=== PATIENT | female | born 1990 | race Caucasian/White ===

== ENCOUNTER 2017-04-04 14:25 | Emergency (ER) | payer BC, MEDICAID ==
[2017-04-04 14:53] VITALS: BMI 33.6
--- NOTE | 2017-04-04 15:05 | OBHP ---
Datetime: 04/04/2017 14:59 IP Adm Impression: , intrauterine IP Chief Complaint Other: r/o pih IP Admit Plan: Observation/Evaluation Admit Comment, IP Provider: at 36.6weeks semd from pmd for pih evaluation. pt has a h/o pretein uria. no hedache or blurry vision. c/o nausea for few weks,no ctxs,vb, lof,+fm. obhx primi pmh h/o preteinuria. pt seen nephrologusy at age 20. was told to go get g=ct scan med pnv all nkda psh de soch den ve closed a/p at 36.7weeks r/o pih cbc/cmp/ptt/pt/ua bp check cont delroy and efm cont close obser Pelvic Type - PN: Adequate Extremities - PN: Normal Abdomen - PN: Normal Back - PN: Normal Breast - PN: Normal Lungs - PN: Normal Heart - PN: Normal Thyroid - PN: Normal Neurologic - PN: Normal HEENT - PN: Normal General - PN: Normal FHR - Baseline A Provider: 130 Contraction Comments Provider: none Comments, ACOG Physical Exam: gravid,non tender ext no edema,no calf ten Vital Signs Provider: Reviewed; Within Normal Limits NICHD Variability Prov Fetus A: Moderate 6-25bpm NICHD Accel Fetus A IP Provider: 15X15 FHR Category Provider Fetus A: Category I Dilatation, Provider: 0 Effacement, Provider: 0 Station, Provider: -3 Genitourinary Exam: Normal DTRs - PN: Normal
[2017-04-04 16:16] LABS: MEAN CELL VOLUME 87.9 fL (81.0-99.0); MEAN CORPUSCULAR HEMOGLOBIN 29.6 pg (27.0-31.0); MEAN CORPUSCULAR HGB CONC 33.7 g/dL (33.0-37.0); MEAN PLATELET VOLUME 8.2 fL (7.2-11.7); RED CELL DISTRIBUTION WIDTH 13.9 % (11.5-14.5); WHITE BLOOD COUNT 11.3 K/uL (4.8-10.8)
[2017-04-04 16:24] LABS: POTASSIUM 4.2 mmol/L (3.6-5.2)
[2017-04-04 16:26] LABS: ALB/GLOB RATIO 0.8 (1.0-2.1); BILIRUBIN,DIRECT 0.4 mg/dL (0.0-0.4); BILIRUBIN,TOTAL 0.4 mg/dL (0.2-1.3); TOTAL PROTEIN 5.9 g/dL (6.3-8.3)
[2017-04-04 16:27] LABS: CALCIUM 8.4 mg/dl (8.6-10.4); URIC ACID 9.5 mg/dL (2.2-7.5)
[2017-04-04 16:31] LABS: RBC URINE < 1 /hpf (0-3); URINE BACTERIA RARE (<OCC); URINE BILIRUBIN NEGATIVE (NEGATIVE); URINE BLOOD NEGATIVE (NEGATIVE); URINE COLOR Yellow (YELLOW); URINE GLUCOSE (UA) NORMAL (Normal); URINE KETONE NEGATIVE (NEGATIVE); URINE LEUKOCYTE ESTERASE NEG Leu/uL (Negative); URINE PROTEIN 2+ mg/dL (NEGATIVE); URINE UROBILINOGEN NORMAL mg/dL (0.2-1.0); WBC URINE 2 /hpf (0-5)
--- NOTE | 2017-04-04 17:29 | OBHP ---
Datetime: 04/04/2017 17:23 Admit Comment, IP Provider: pt was seen at bed side. feel ok, no ctxs, vb, lof,=fm, no hedache or bl urry vision bp norm blood wok norm except cretinine 1.8 and pr 2+. 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 plan dc home preeclamtic s/s given. po hyration ptl given f/u on sunday in [facility] FHR - Baseline A Provider: 120 Contraction Comments Provider: none Vital Signs Provider: Reviewed; Within Normal Limits NICHD Variability Prov Fetus A: Moderate 6-25bpm NICHD Accel Fetus A IP Provider: 15X15 FHR Category Provider Fetus A: Category I
--- NOTE | 2017-04-04 17:31 | OBDCSUM ---
Datetime: 04/04/2017 17:28 Discharged to, Provider: Home Follow up at, Provider: april 08 at 6 pm Disch Instr Activity: Normal activity Disch Instr Diet: Regular Discharge Time: 04/04/2017 17:29 Follow up in weeks, Provider: [facility], labor and delivery Disch Referrals: None Discharge Comment, Provider: dc home preeclamtic s/s given. po hyration ptl given f/u on sunday in [facility] Discharge Diagnosis Prov Other: 36weeks proteinuria nst
== END 2017-04-04 17:28 | disposition home or self-care (01) ==
LOC: C.EROB 14:25
DX: O12.13 Gestational proteinuria, third trimester (principal); Z3A.36 36 weeks gestation of pregnancy

== ENCOUNTER 2017-04-08 18:58 | Inpatient (IN) | payer BC, OTHER, MEDICAID ==
[2017-04-08 19:47] VITALS: BMI 33.3
--- NOTE | 2017-04-08 19:54 | OBADHP ---
Datetime: 04/08/2017 19:42 IP Adm Impression Other: Gestational HPT Admit Comment, IP Provider: 26yo with IUP at 37+ wkspresents here today for admission and evalu ation for IOL due to elevated BPs and proteinuria as per her Primary OB.( Dr Sampson).She currently denie s any headache or dizziness or epigastric pain. She also denies any VB or LOF. [place]- Irregular, FHR- category 1, Cx- 0/20/-3. Vtx, GBS Negative. Assessment: IUP at 37+wks with elevated BPs and proteinuria. Plan as per Dr Sampson: Admit to LND Cervical ripening with Cytotec 50mcg po q 4 hours.( Orders recieved from Dr Sampson on discussion of P t with her on the telephone.) Pelvic Type - PN: Adequate Extremities - PN: Normal Abdomen - PN: Normal Back - PN: Normal Breast - PN: Normal Lungs - PN: Normal Heart - PN: Normal Thyroid - PN: Normal Neurologic - PN: Normal HEENT - PN: Normal General - PN: Normal Presentation-Admit: Vertex FHR - Baseline A Provider: 130s Membranes, Provider: Intact Contraction Comments Provider: occasional Comments, ACOG Physical Exam: Abd: Soft, NT, BS- present Gestation - Est Wks by US: 37.0 Vital Signs Provider: Reviewed IP Chief Complaint: Maternal discomfort NICHD Variability Prov Fetus A: Moderate 6-25bpm NICHD Accel Fetus A IP Provider: 15X15 FHR Category Provider Fetus A: Category I NICHD Decel Fetus A IP Provider: None Dilatation, Provider: 0 Effacement, Provider: 20 Station, Provider: -3 Genitourinary Exam: Normal DTRs - PN: Normal EGA AdmitDate IP: 37.3 IP Adm Impression: Term, intrauterine ; No Active Labor IP Admit Plan: Admit to unit; Initiate labor protocol Datetime: 04/04/2017 14:59 IP Chief Complaint Other: r/o pih
[2017-04-08] MEDS: Lactated Ringer's 1,000 ML IV SCH (20:14)
[2017-04-08 20:19] LABS: BASO % 0.2 % (0.0-2.0); EOS # 0.1 K/uL (0.0-0.7); EOS % 0.8 % (0.0-4.0); LYMPH # 2.4 K/uL (1.0-4.3); LYMPH % 18.2 % (20.0-40.0); MEAN CELL VOLUME 88.3 fL (81.0-99.0); MEAN CORPUSCULAR HEMOGLOBIN 29.3 pg (27.0-31.0); MEAN CORPUSCULAR HGB CONC 33.3 g/dL (33.0-37.0); MEAN PLATELET VOLUME 8.3 fL (7.2-11.7); MONO # 0.8 K/uL (0.0-0.8); MONO % 5.7 % (0.0-10.0); NEUT % 75.1 % (50.0-75.0); RBC 3.4 Mil/uL (3.80-5.20); RED CELL DISTRIBUTION WIDTH 13.5 % (11.5-14.5); WHITE BLOOD COUNT 13.3 K/uL (4.8-10.8)
[2017-04-08 20:22] LABS: SQUAMOUS EPITHIAL 9 /hpf (0-5); URINE BACTERIA RARE (<OCC); URINE BILIRUBIN NEGATIVE (NEGATIVE); URINE BLOOD NEGATIVE (NEGATIVE); URINE CLARITY Hazy (Clear); URINE COLOR Yellow (YELLOW); URINE GLUCOSE (UA) NORMAL (Normal); URINE LEUKOCYTE ESTERASE NEG Leu/uL (Negative); URINE NITRATE NEGATIVE (NEGATIVE); URINE PROTEIN 3+ mg/dL (NEGATIVE); URINE UROBILINOGEN NORMAL mg/dL (0.2-1.0)
[2017-04-08 20:26] LABS: PROTHROMBIN TIME 10.6 SECONDS (9.7-12.2)
[2017-04-08 20:40] LABS: ALBUMIN 2.7 g/dL (3.5-5.0)
[2017-04-08 20:43] LABS: ALB/GLOB RATIO 0.8 (1.0-2.1); CALCIUM 8.2 mg/dl (8.6-10.4)
[2017-04-08 21:31] LABS: BARBITURATES, UR NEGATIVE (NEGATIVE)
[2017-04-08 21:32] LABS: BENZODIAZEPINES, UR NEGATIVE (NEGATIVE)
[2017-04-08 21:35] LABS: OPIATES, UR NEGATIVE (NEGATIVE)
[2017-04-08 21:36] LABS: PHENCYCLIDINE, UR NEGATIVE (NEGATIVE)
[2017-04-09] MEDS: Lactated Ringer's 1,000 ML IV SCH (04:38)
--- NOTE | 2017-04-09 08:10 | OBPN ---
Datetime: 04/09/2017 08:00 IP Procedures: Sterile Vag Exam IP Progress Plan: Continue present management Contraction Comments Provider: irregular FHR - Baseline A Provider: 125 Gestation - Est Wks by US: 37w 4d IP Progress Note Comment: Asked to evaluate patient for cervical progress. Paatient received in right lateral position, in LDR#4. C/O low back pain, pain scale 6/10 to 7/10. (+) AFM. Denies headaches, blurred vision, spots, epigastric or RUQ pain V.E. as above. Cervix: medium consistency; head well applied. Assessment: 26 yo P0, 37w 3d, IOL for gestational HTN; no stigmata of pre-eclampsia at this time. Category 1 tracing. Clinically stable. Plan: 1) Continue cervical ripening, 2) Anticipate vaginal delivery - as per Dr. Sampson Vital Signs Provider: Reviewed NICHD Accel Fetus A IP Provider: 10X10 FHR Category Provider Fetus A: Category I NICHD Variability Prov Fetus A: Moderate 6-25bpm Dilatation, Provider: 1 Effacement, Provider: 40 Station, Provider: -3 NICHD Decel Fetus A IP Provider: None Datetime: 04/08/2017 19:42 Membranes, Provider: Intact Presentation-Admit: Vertex
[2017-04-09] MEDS ORDERED: Nalbuphine 20 mg/ml Inj (1 ml) ONE (08:38)
[2017-04-09] MEDS ORDERED: Nalbuphine 20 mg/ml Inj (1 ml) IVP PRN (08:45)
[2017-04-09] MEDS ORDERED: Bupivacaine 0.125%/FentaNYL 200 ML EPI ONE ×2 (10:18→22:09)
--- NOTE | 2017-04-09 12:37 | OBPN ---
Datetime: 04/09/2017 11:14 IP Progress Impression: Normal progression of labor IP Progress Plan: Cervical Ripening Contraction Comments Provider: irregular FHR - Baseline A Provider: 120 Gestation - Est Wks by US: 37w 4d Presentation-Admit: Vertex IP Progress Note Comment: S/P epidural - no c/o pain V.E.: as above. Cervix: anterior and soft Assessment: 27 yo, 37w 4, IOL for gest HTN; S/P cytotec p.o. x 1 and now epiduarl; making cervical change. Category 1 tracing. Possible intracervical balloon. Plan: 1) As above. 2) Dr. Sampson en route NICHD Accel Fetus A IP Provider: 15X15 FHR Category Provider Fetus A: Category I NICHD Variability Prov Fetus A: Moderate 6-25bpm Dilatation, Provider: 1-2 Effacement, Provider: 50 Station, Provider: -3 NICHD Decel Fetus A IP Provider: None
[2017-04-09] MEDS ORDERED: Oxytocin 30 UNIT 30 UNITS/500 ML BAG IV ONE (13:16)
[2017-04-09] MEDS: Oxytocin 30 UNIT 30 UNITS/500 ML BAG IV SCH (13:20)
[2017-04-09] MEDS ORDERED: Dextrose 5%/Lactated Ringer's 1,000 ML IV SCH (18:15)
[2017-04-10] MEDS ORDERED: Lidocaine 2% Inj (20ml) ONE (01:06)
[2017-04-10] MEDS ORDERED: Benzocaine/Menthol 20%-0.5% Topical Spray (60 ml) TOP PRN (03:14)
[2017-04-10] MEDS: Oxytocin 30 UNIT 30 UNITS/500 ML BAG IV SCH (04:17)
[2017-04-10] MEDS: Multiple Vitamins Tab PO SCH (10:33)
--- NOTE | 2017-04-10 14:10 | OBDS ---
DELIVERY PERSONNEL Delivery Doctor: Dr Sampson Machined Parts Metal Sprayer: Mary Orr RN Anesthesiologist: Dr Lake MATERNAL INFORMATION Delivery Anesthesia: Epidural Medications in Delivery: Pitocin 20 unit IV Estimated Blood Loss (ml): 200 Placenta Cultured: Yes Maternal Complications: None LABOR SUMMARY EDC: 04/26/2017 00:00 No. Babies in Womb: 1 Attempted: No Labor Anesthesia: Epidural LABOR INFORMATION Reason for Induction: Gest. HTN/PreEclampsia/Eclampsia Onset of Labor: 04/09/2017 12:23 Complete Dilatation: 04/10/2017 01:00 Cervical Ripening Agents: Cytotec @ (Annotations: 50 mcg PO) Oxytocin: Induction Group B Beta Strep: Negative Antibiotics # of Doses: 0 Steroids Given: None Reason Steroids Not Administered: Not Applicable MEMBRANES Membranes Rupture Method: Spontaneous Rupture of Membranes: 04/09/2017 12:23 Length of Rupture (hrs): 14.55 Amniotic Fluid Color: Clear Amniotic Fluid Amount: Small Amniotic Fluid Odor: Normal STAGES OF LABOR Stage 1 hrs: 12 Stage 1 min: 37 Stage 2 hrs: 1 Stage 2 min: 56 Stage 3 hrs: 0 Stage 3 min: 4 Total Time in Labor hrs: 14 Total Time in Labor min: 37 VAGINAL DELIVERY Episiotomy: None Laceration Extension: First Degree Laceration Type: Perineal Other Laceration: labial Laceration Repair: Yes Laceration Repair Note: figure of eight 2-0 chromic, labial laceration internal and hemostatic, no s titch necessary Initial Vag Sponge Count: 10 Final Vag Sponge Count: 10 Initial Vag Sharps Count: 0 Final Vag Sharps Count: 1 Sponge Count Correct: Yes; Vaginal Sweep Performed Sharps Count Correct: Yes BABY A INFORMATION Infant Delivery Date/Time: 04/10/2017 02:56 Method of Delivery: Vaginal Born in Route : No : N/A Forceps: N/A Vacuum Extraction: Successful Shoulder Dystocia : No ASSISTED DELIVERY BABY A Vacuum Number of Pulls: 1 SHOULDER DYSTOCIA BABY A Delivery Date/Time: 04/10/2017 02:56 PRESENTATION/POSITION BABY A Presentation: Cephalic Cephalic Presentation: Vertex Vertex Position: Right Occipital Anterior Breech Presentation: N/A PLACENTA INFORMATION BABY A Placenta Delivery Time : 04/10/2017 03:00 Placenta Method of Delivery: Spontaneous Placenta Status: Delivered SCORES BABY A Heart Rate 1 min: >100 bpm Resp Effort 1 min: Good Cry Reflex Irritability 1 min: Cough or Sneeze or Pulls Away Muscle Tone 1 min: Active Motion Color 1 min: Body [place], Extremities Blue SCORE 1 MIN: 9 Heart Rate 5 min: >100 bpm Resp Effort 5 min: Good Cry Reflex Irritability 5 min: Cough or Sneeze or Pulls Away Muscle Tone 5 min: Active Motion Color 5 min: Body [place], Extremities Blue SCORE 5 MIN: 9 INFANT INFORMATION BABY A Gestational Age at Delivery: 37.6 Gestational Status: Term Infant Outcome : Liveborn Condition : Stable Sex: Male IDENTIFICATION/MEDS BABY A ID Band Number: [id number] ID Band Location: Left Leg; Left Arm Sensor Applied: Yes Sensor Number: [id number] Sensor Location : Cord Clamp Vitamin K Given : Aquamephyton 1 mg IM; Left Thigh Erythromycin Given: Given Both Eyes WEIGHT/LENGTH BABY A Birthweight (gms): 3065 Infant Weight (lb): 6 Infant Weight (oz): 12 Length Inches: 19.00 Length cms: 48.3 CORD INFORMATION BABY A No. Cord Vessels: 3 Nuchal Cord : N/A Cord Blood Taken: Yes Infant Suction: Mouth ASSESSMENT BABY A Infant Complications: None Physical Findings at Delivery: Within Normal Limits; Molding of the Head Respirations: Appears Normal Computer Service Technician/ALS Called : No Care By: Florence Transferred To: Remains with Mother
[2017-04-10] MEDS ORDERED: guaiFENesin 100 mg/5 ml Syrup UD PO PRN ×2 (22:13→22:39)
[2017-04-10] MEDS ORDERED: Benzocaine/Menthol (Cepacol) Lozenge PO PRN (22:25)
[2017-04-10] MEDS: guaiFENesin 100 mg/5 ml Syrup UD PO PRN (23:06)
[2017-04-10] MEDS: Benzocaine/Menthol (Cepacol) Lozenge PO PRN (23:09)
[2017-04-11] MEDS: guaiFENesin 100 mg/5 ml Syrup UD PO PRN ×3 (07:49→23:07)
[2017-04-11] MEDS: Benzocaine/Menthol (Cepacol) Lozenge PO PRN ×3 (07:54→20:57)
[2017-04-11 08:24] LABS: BASO # 0.1 K/uL (0.0-0.2); BASO % 0.3 % (0.0-2.0); EOS # 0.2 K/uL (0.0-0.7); EOS % 1.2 % (0.0-4.0); LYMPH # 2.4 K/uL (1.0-4.3); LYMPH % 13.3 % (20.0-40.0); MEAN CELL VOLUME 88.7 fL (81.0-99.0); MEAN CORPUSCULAR HEMOGLOBIN 30.2 pg (27.0-31.0); MEAN PLATELET VOLUME 8.1 fL (7.2-11.7); MONO # 0.8 K/uL (0.0-0.8); MONO % 4.2 % (0.0-10.0); NEUT # 14.8 K/uL (1.8-7.0); RBC 3.33 Mil/uL (3.80-5.20); RED CELL DISTRIBUTION WIDTH 13.8 % (11.5-14.5); WHITE BLOOD COUNT 18.2 K/uL (4.8-10.8)
[2017-04-11] MEDS: Multiple Vitamins Tab PO SCH (10:14)
--- NOTE | 2017-04-11 19:09 | OBPPN ---
Datetime: 04/11/2017 19:07 PP Pain Prov: Within normal limits PP Nausea Prov: Denies PP Flatus Prov: Yes PP Breasts Prov: Normal PP Heart Prov: Normal PP Lungs Prov: Normal PP Abdomen/Uterus Prov: Normal PP Lochia Prov: Normal PP Vulva/Perineum Prov: Normal PP CVA Tenderness Prov: Normal PP Extremities Prov: Normal PP Impression Prov: Normal progression PP Plan Prov: Continue present management PP Progress Note Prov: ppd#1 VAVD discussed discharge instructions, will be for AM discharge tomorrow
--- NOTE | 2017-04-11 19:15 | OBDCSUM ---
Datetime: 04/11/2017 19:08 Discharged to, Provider: Home Disch Instr Activity: Normal activity Disch Instr Diet: Regular Discharge Instructions, Provider: Routine instructions given Discharge Diagnosis, Provider: Term Delivered Discharge Time: 04/12/2017 10:00 Disch Referrals: None Contraception discussed, Prov: Yes Disch Activity Restrictions: No exercising; No lifting; No driving; No sexual activity; Nothing in v agina - [place], tampons, douche Discharge Diagnosis Prov Other: gestiational hypertension
[2017-04-12 00:08] VITALS: O2SAT 99
[2017-04-12] MEDS: Benzocaine/Menthol (Cepacol) Lozenge PO PRN ×2 (03:16→07:58)
[2017-04-12] MEDS: guaiFENesin 100 mg/5 ml Syrup UD PO PRN (07:57)
[2017-04-12 08:19] VITALS: BP 157/87; PULSE 64; RESP 18; TEMP 97.3
[2017-04-12] MEDS: Multiple Vitamins Tab PO SCH (10:01)
== END 2017-04-12 12:25 | disposition home or self-care (01) | DRG 774 ==
LOC: C.EROB 18:58 → C.4D 19:47 → C.4M 04-10 04:37 → UNDODISIN 04-11 16:00
PROVIDERS: ADMIT Obstetrics & Gynecology; ATTEND Obstetrics & Gynecology
PROC: 3E0P7GC Introduction of Other Therapeutic Substance into Female Reproductive, Via Natural or Artificial Opening (ICD-10-PCS; 2017-04-09)
PROC: 10E0XZZ Delivery of Products of Conception, External Approach (ICD-10-PCS; principal; 2017-04-10)
PROC: 0HQ9XZZ Repair Perineum Skin, External Approach (ICD-10-PCS; 2017-04-10)
DX: O14.93 Unspecified pre-eclampsia, third trimester (principal); O70.0 First degree perineal laceration during delivery; Z37.0 Single live birth; Z3A.37 37 weeks gestation of pregnancy

== ENCOUNTER 2017-08-15 13:08 | Inpatient (IN) | payer MEDICAID, OTHER ==
[2017-08-15 13:23] VITALS: BMI 26.6
[2017-08-15] MEDS ORDERED: Sodium Chloride 0.9% 1,000 ML IV ONE (13:34)
--- NOTE | 2017-08-15 13:46 | C.PDOC ---
History Of Present Illness 26 y/o female c/o abdominal pain associated with vomiting and diarrhea for 3 days. Patient notes eating a sandwich that may have given her food poisoning. Patient denies fever, chills, SOB, or chest pain. Time Seen by Provider: 08/15/17 13:28 Chief Complaint (Nursing): Abdominal Pain History Per: Patient History/Exam Limitations: no limitations Onset/Duration Of Symptoms: Days (3) Current Symptoms Are (Timing): Still Present Severity: Mild Location Of Pain/Discomfort: Diffuse Associated Symptoms: Vomiting, Diarrhea Recent travel outside of the [place]: No Additional History Per: Patient Past Medical History Reviewed: Historical Data, Nursing Documentation, Vital Signs Vital Signs: Last Vital Signs Temp 99.1 F 08/15/17 17:48 Pulse 91 H 08/15/17 17:48 Resp 18 08/15/17 17:48 BP 130/80 08/15/17 17:48 Pulse Ox 98 08/15/17 18:01 - Dine perfect Procedures DELIVERY OF PRODUCTS OF CONCEPTION, EXTERNAL APPROACH (04/08/17) INTRODUCE OF OTH THERAP SUBST INTO FEM REPROD, VIA OPENING (04/08/17) REPAIR PERINEUM SKIN, EXTERNAL APPROACH (04/08/17) Family History: States: Unknown Family Hx - Social History Hx Alcohol Use: No Hx Substance Use: No - Immunization History Hx Tetanus Toxoid Vaccination: No Hx Influenza Vaccination: No Hx Pneumococcal Vaccination: No Review Of Systems Except As Marked, All Systems Reviewed And Found Negative. Constitutional: Negative for: Fever, Chills Cardiovascular: Negative for: Chest Pain, Palpitations Respiratory: Negative for: Shortness of Breath Gastrointestinal: Positive for: Vomiting, Abdominal Pain, Diarrhea Skin: Negative for: Rash Physical Exam - Physical Exam Appears: Non-toxic, No Acute Distress Skin: Warm, Dry Head: Atraumatic, Normacephalic Throat: Normal, No Erythema Chest: Symmetrical Cardiovascular: Rhythm Regular, No Murmur Respiratory: Normal Breath Sounds, No Rales, No Rhonchi, No Wheezing Gastrointestinal/Abdominal: Soft, Tenderness (Mild nonfocal tenderness), No Guarding, No Rebound Back: No CVA Tenderness Neurological/Psych: Oriented x3 ED Course And Treatment - Laboratory Results Result Diagrams: 08/15/17 14:08 08/15/17 14:08 O2 Sat by Pulse Oximetry: 98 (RA) Pulse Ox Interpretation: Normal - CT Scan/US CT Abd/Pel w/o Other Rad Studies (CT/US): Interpreted By Me, Read By Radiologist CT/US Interpretation: PROCEDURE: CT Abdomen and Pelvis without Oral or IV contrast. HISTORY: abd pain, leukocytosis, elevated cr. COMPARISON: None available. TECHNIQUE: Contiguous axial images of the abdomen and pelvis. No oral or IV contrast administered. Coronal and Sagittal reformats generated and reviewed. Radiation dose: Total exam DLP = 476.89 mGy-cm. This CT exam was performed using one or more of the following dose reduction techniques: Automated exposure control, adjustment of the mA and/or kV according to patient size, and/or use of iterative reconstruction technique. FINDINGS: There is limited evaluation of the solid organs without the administration of IV contrast. LOWER THORAX: No visible consolidation, pleural effusion, or pneumothorax. Small hiatal hernia. Bilateral breast prostheses. LIVER: Unremarkable unenhanced appearance. GALLBLADDER AND BILE DUCTS: Unremarkable unenhanced appearance. PANCREAS: Unremarkable unenhanced appearance. SPLEEN: Unremarkable unenhanced appearance. ADRENALS: Unremarkable unenhanced appearance. KIDNEYS AND URETERS: No hydronephrosis or obstructing renal calculus. BLADDER: Distended urinary bladder appears otherwise unremarkable. REPRODUCTIVE: Uterus is present. APPENDIX: The appendix is dilated measuring approximately 13 mm in diameter with intraluminal high-density favored to reflect appendicoliths. Extensive adjacent inflammatory changes are noted. BOWEL: The stomach is nondistended. Lack of oral contrast limits evaluation for bowel pathology. The bowel loops appear within normal limits of caliber without evidence of intestinal obstruction. PERITONEUM: No significant free fluid. No definite free air. LYMPH NODES: No bulky lymphadenopathy identified. VASCULATURE: No aortic aneurysm. BONES: No acute osseous abnormality is detected. OTHER FINDINGS: None. IMPRESSION: The appendix is dilated measuring approximately 13 mm in diameter with intraluminal high- density favored to reflect appendicoliths. Extensive adjacent inflammatory changes are noted. Constellation of findings appear consistent with acute appendicitis. Correlate clinically. Medical Decision Making Medical Decision Making: Plans: * Zofran * Protonix * IV fluids * UA * Blood labs Discussed with Dr. Pandey who is prior authorization technician and advised the patient to be admitted. Disposition - Disposition Disposition: HOSPITALIZED Disposition Time: 18:00 Condition: STABLE - Clinical Impression Clinical Impression: Appendicitis - Scribe Statement The provider has reviewed the documentation as recorded by the Scribe Leslye sparks All medical record entries made by the Scribe were at my direction and personally dictated by me. I have reviewed the chart and agree that the record accurately reflects my personal performance of the history, physical exam, medical decision making, and the department course for this patient. I have also personally directed, reviewed, and agree with the discharge instructions and disposition. Decision To Admit - Pt Status Changed To: Hospital Disposition Of: Inpatient - Admit Certification Admit to Inpatient:: After my assessment, the patient will require hospitalization for at least two midnights. This is because of the severity of symptoms shown, intensity of services needed, and/or the medical risk in this patient being treated as an outpatient. - InPatient: Physician Admission Certification:: pt with appendciitis, needs or - . Bed Request Type: Regular Admitting Physician: Suze Pandey Patient Diagnosis: Appendicitis
[2017-08-15] MEDS ORDERED: Sodium Chloride 0.9% 1,000 ML ONE (13:53)
[2017-08-15 14:11] LABS: BASO % 0.2 % (0.0-2.0); EOS % 0.2 % (0.0-4.0); HEMATOCRIT 39.9 % (34.0-47.0); LYMPH # 0.9 K/uL (1.0-4.3); LYMPH % 3.4 % (20.0-40.0); MEAN CELL VOLUME 87.1 fL (81.0-99.0); MEAN CORPUSCULAR HEMOGLOBIN 29.1 pg (27.0-31.0); MEAN CORPUSCULAR HGB CONC 33.4 g/dL (33.0-37.0); MEAN PLATELET VOLUME 8.8 fL (7.2-11.7); MONO # 0.8 K/uL (0.0-0.8); MONO % 2.9 % (0.0-10.0); PLATELET COUNT 266 K/uL (130-400); RED CELL DISTRIBUTION WIDTH 13.4 % (11.5-14.5)
[2017-08-15 14:20] LABS: POTASSIUM 3.8 mmol/L (3.6-5.2)
[2017-08-15 14:22] LABS: INR 1.2
[2017-08-15 14:23] LABS: ALB/GLOB RATIO 1.2 (1.0-2.1); BILIRUBIN,TOTAL 0.7 mg/dL (0.2-1.3); CALCIUM 8.5 mg/dl (8.6-10.4); TOTAL PROTEIN 7.1 g/dL (6.3-8.3)
[2017-08-15 14:31] LABS: WHITE BLOOD COUNT 27.6 K/uL (4.8-10.8)
[2017-08-15 15:07] LABS: EOSINOPHIL 2 % (0-4); NEUTROPHIL 90 % (50-75); TOTAL CELLS COUNTED 100
[2017-08-15 15:16] LABS: RBC URINE 1 /hpf (0-3); URINE BILIRUBIN NEGATIVE (NEGATIVE); URINE BLOOD NEGATIVE (NEGATIVE); URINE COLOR Straw (YELLOW); URINE GLUCOSE (UA) NORMAL (Normal); URINE KETONE NEGATIVE (NEGATIVE); URINE LEUKOCYTE ESTERASE NEG Leu/uL (Negative); URINE PROTEIN 2+ mg/dL (NEGATIVE); URINE UROBILINOGEN NORMAL mg/dL (0.2-1.0); WBC URINE 8 /hpf (0-5)
--- NOTE | 2017-08-15 16:36 | CT ---
PROCEDURE: CT Abdomen and Pelvis without Oral or IV contrast. HISTORY: abd pain, leukocytosis, elevated cr COMPARISON: None available. TECHNIQUE: Contiguous axial images of the abdomen and pelvis. No oral or IV contrast administered. Coronal and Sagittal reformats generated and reviewed. Radiation dose: Total exam DLP = 476.89 mGy-cm. This CT exam was performed using one or more of the following dose reduction techniques: Automated exposure control, adjustment of the mA and/or kV according to patient size, and/or use of iterative reconstruction technique. FINDINGS: There is limited evaluation of the solid organs without the administration of IV contrast. LOWER THORAX: No visible consolidation, pleural effusion, or pneumothorax. Small hiatal hernia. Bilateral breast prostheses. LIVER: Unremarkable unenhanced appearance. GALLBLADDER AND BILE DUCTS: Unremarkable unenhanced appearance. PANCREAS: Unremarkable unenhanced appearance. SPLEEN: Unremarkable unenhanced appearance. ADRENALS: Unremarkable unenhanced appearance. KIDNEYS AND URETERS: No hydronephrosis or obstructing renal calculus. BLADDER: Distended urinary bladder appears otherwise unremarkable. REPRODUCTIVE: Uterus is present. APPENDIX: The appendix is dilated measuring approximately 13 mm in diameter with intraluminal high-density favored to reflect appendicoliths. Extensive adjacent inflammatory changes are noted. BOWEL: The stomach is nondistended. Lack of oral contrast limits evaluation for bowel pathology. The bowel loops appear within normal limits of caliber without evidence of intestinal obstruction. PERITONEUM: No significant free fluid. No definite free air. LYMPH NODES: No bulky lymphadenopathy identified. VASCULATURE: No aortic aneurysm. BONES: No acute osseous abnormality is detected. OTHER FINDINGS: None. IMPRESSION: The appendix is dilated measuring approximately 13 mm in diameter with intraluminal high-density favored to reflect appendicoliths. Extensive adjacent inflammatory changes are noted. Constellation of findings appear consistent with acute appendicitis. Correlate clinically.
[2017-08-15] MEDS ORDERED: Piperacillin/Tazobact 3.375 GM in Sodium Chloride 100 ML IVPB STA (16:37)
[2017-08-15] MEDS ORDERED: Piperacill/Tazo 3.375gm in Dex 3.375 GM/50 ML BAG IVPB STA (16:41)
[2017-08-15] MEDS ORDERED: Midazolam 2 MG/2 ML VIAL ONE (17:26)
[2017-08-15] MEDS ORDERED: Propofol 10 mg/ml Inj (20 ML) ONE (17:26)
[2017-08-15] MEDS ORDERED: Succinylcholine Chloride 20 mg/ml Syr (5 ml) IV ONE (17:28)
[2017-08-15] MEDS ORDERED: Rocuronium 10 mg/ml (5 ml) ONE (17:32)
[2017-08-15] MEDS ORDERED: Lactated Ringer's 1,000 ML IV ONE ×2 (17:48)
--- NOTE | 2017-08-15 18:06 | CP.PCM.HP ---
History of Present Illness - History of Present Illness History of Present Illness: GENERAL SURGERY HISTORY AND PHYSICAL FOR DR. LAIRD 26yo F with PMHx of vaginal delivery 4 months ago, elevated Cr and proteinuria presents to the ED with abdominal pain, vomiting, and diarrhea. The symptoms began 3 days ago after eating a ham and cheese sandwhich. The pain is diffusely located and comes and goes. She has vomited about 2-3 times each day for the past 3 days. She has also had diarrhea for the past 3 days, non bloody. She does not have an appetite but she is thirsty. She denies CP, SOB, dysuria, urinary frequency or change in urination. Last BM was this morning. LMP: 2 weeks ago. Patient states that she "needs to get her kidneys checked out" but states she hasn't seen a national account director yet. A previous note for October 2015 stated that patient saw a national account director at 20 years old. Her OB-PATIENT ACCESS ASSOCIATE notes show elevated BP and proteinuria during her . PMHx: Vaginal delivery 4 months ago, had elevated BP and proteinuria at that time. Surgeries: dental surgery Allergies: none Medications: none Social history: denies etoh, tobacco use or illicit drug use. Present on Admission - Present on Admission Any Indicators Present on Admission: No Review of Systems - Review of Systems All systems: reviewed and no additional remarkable complaints except (as per HPI ) Past Patient History - Past Social History Smoking Status: Never Smoked - PSYCHIATRIC Hx Substance Use: No - SURGICAL HISTORY Hx Surgeries: No Meds Allergies/Adverse Reactions: Allergies Allergy/AdvReac Type Severity Reaction Status Date / Time No Known Allergies Allergy Verified 08/15/17 13:22 Physical Exam - Constitutional Appears: Non-toxic, No Acute Distress - Head Exam Head Exam: ATRAUMATIC, NORMAL INSPECTION - Eye Exam Eye Exam: EOMI, Normal appearance - Respiratory Exam Respiratory Exam: NORMAL BREATHING PATTERN. absent: Respiratory Distress - Cardiovascular Exam Cardiovascular Exam: +S1, +S2. absent: Tachycardia - GI/Abdominal Exam GI & Abdominal Exam: Soft, Tenderness (tender in bilateral lower abdomen). absent: Distended, Firm, Guarding, Hernia, Mass, Rigid - Neurological Exam Neurological exam: Alert, CN II-XII Intact, Oriented x3 - Psychiatric Exam Psychiatric exam: Anxious - Skin Skin Exam: Dry, Normal Color, Warm Results - Vital Signs Recent Vital Signs: Last Vital Signs Temp 99.1 F 11/08/17 17:48 Pulse 91 H 08/15/17 17:48 Resp 18 08/15/17 17:48 BP 130/80 08/15/17 17:48 Pulse Ox 99 08/15/17 17:48 - Labs Result Diagrams: 08/15/17 14:08 08/15/17 14:08 Labs: Laboratory Results - last 24 hr 08/15/17 08/15/17 08/15/17 14:08 14:08 14:08 WBC 27.6 H D RBC 4.58 Hgb 13.3 D Hct 39.9 MCV 87.1 MCH 29.1 MCHC 33.4 RDW 13.4 Plt Count 266 MPV 8.8 Neut % (Auto) 93.3 H Lymph % (Auto) 3.4 L [place] % (Auto) 2.9 Eos % (Auto) 0.2 Baso % (Auto) 0.2 Neut # 25.7 H Lymph # 0.9 L [place] # 0.8 Eos # 0.0 Baso # 0.0 Neutrophils % (Manual) 90 H Lymphocytes % (Manual) 4 L Monocytes % (Manual) 4 Eosinophils % (Manual) 2 Platelet Estimate Normal RBC Morphology Normal PT 13.1 H INR 1.2 APTT 31 Sodium 135 Potassium 3.8 Chloride 100 Carbon Dioxide 24 Anion Gap 14 BUN 23 H Creatinine 2.7 H Est GFR ( Amer) 26 Est GFR (Non-Af Amer) 21 Random Glucose 135 H Calcium 8.5 L Total Bilirubin 0.7 AST 17 ALT 34 Alkaline Phosphatase 68 Total Protein 7.1 Albumin 3.9 Globulin 3.2 Albumin/Globulin Ratio 1.2 Lipase 55 Urine Color Urine Clarity Urine pH Ur Specific [place] Urine Protein Urine Glucose (UA) Urine Ketones Urine Blood Urine Nitrate Urine Bilirubin Urine Urobilinogen Ur Leukocyte Esterase Urine WBC (Auto) Urine RBC (Auto) Ur Squamous Epith Cells Urine HCG, Qual 08/15/17 15:00 WBC RBC Hgb Hct MCV MCH MCHC RDW Plt Count MPV Neut % (Auto) Lymph % (Auto) [place] % (Auto) Eos % (Auto) Baso % (Auto) Neut # Lymph # [place] # Eos # Baso # Neutrophils % (Manual) Lymphocytes % (Manual) Monocytes % (Manual) Eosinophils % (Manual) Platelet Estimate RBC Morphology PT INR APTT Sodium Potassium Chloride Carbon Dioxide Anion Gap BUN Creatinine Est GFR ( Amer) Est GFR (Non-Af Amer) Random Glucose Calcium Total Bilirubin AST ALT Alkaline Phosphatase Total Protein Albumin Globulin Albumin/Globulin Ratio Lipase Urine Color Straw Urine Clarity Clear Urine pH 6.0 Ur Specific [place] 1.006 Urine Protein 2+ H Urine Glucose (UA) Normal Urine Ketones Negative Urine Blood Negative Urine Nitrate Negative Urine Bilirubin Negative Urine Urobilinogen Normal Ur Leukocyte Esterase Neg Urine WBC (Auto) 8 H Urine RBC (Auto) 1 Ur Squamous Epith Cells 4 Urine HCG, Qual Negative Assessment & Plan - Assessment and Plan (Free Text) Assessment: 26yo F with acute appendicitis - Afebrile, VSS - Leukocytosis WBC 27.6 - Elevated BUN/Cr 23/2.7 (elevated on previous visits as well) - CT: appendix dilated ~13mm diameter with intraluminal high density showing possible appendicoliths, extensive adjacent inflammatory changes - OR today for laparoscopic appendectomy, possible open - Procedure and risks explained to patient in detail, all questions were answered, written consent obtained - NPO for OR today - IV Zosyn renally dosed - IV fluids - Pain medication and Zofran PRN - Nephrology consult - PPx: Protonix, SCDs - Discussed plan with Dr. Dannie Thomas PGY-3
[2017-08-15] MEDS ORDERED: HYDROmorphone 0.5 mg/0.5 ml ISec IVP PRN ×2 (18:13→19:10)
[2017-08-15] MEDS ORDERED: Sodium Chloride 0.9% 1,000 ML IV SCH (18:15)
[2017-08-15] MEDS ORDERED: Piperacill/Tazo 3.375gm in Dex 3.375 GM/50 ML BAG IVPB SCH (18:45)
[2017-08-15] MEDS ORDERED: Morphine 4 MG/ML VIAL ONE ×2 (19:26→19:37)
--- NOTE | 2017-08-15 19:54 | PCM.SURG1 ---
Surgeon's Initial Post Op Note - Surgeon's Notes Surgeon: Dr. Pandey Tank Hoop Bender: Dr. Thomas PGY-3 Type of Anesthesia: General Endo Pre-Operative Diagnosis: Acute appendicitis Operative Findings: Perforated appendicitis with localized abscess Post-Operative Diagnosis: Acute perforated appendicitis with localized abscess Operation Performed: Laparoscopic appendectomy Specimen/Specimens Removed: appendix Estimated Blood Loss: EBL {In ML}: 10 Blood Products Given: N/A Drains Used: No Drains Post-Op Condition: Fair Date of Surgery/Procedure: 08/15/17 Time of Surgery/Procedure: 19:53
[2017-08-15 21:14] VITALS: BP 133/79; PULSE 74; RESP 20; TEMP 98.3; O2SAT 97
[2017-08-15] MEDS ORDERED: Pneumococcal 23-Valent Vaccine IM ONE (22:10)
[2017-08-15] MEDS ORDERED: Influenza Vaccine 60 mcg/0.5 mL SYR (4YR UP) IM ONE (22:11)
[2017-08-16] MEDS ORDERED: Piperacill/Tazo 2.25gm in Dex 2.25 GM/50 ML BAG IVPB SCH
--- NOTE | 2017-08-17 01:38 | OP ---
PROCEDURE DATE: 08/15/2017 PREOPERATIVE DIAGNOSIS: Acute appendicitis. POSTOPERATIVE DIAGNOSIS: Perforated appendicitis with localized abscess. PROCEDURE: Laparoscopic appendectomy. SURGEON: Dr. Suze Pandey. LABOR RELATIONS OFFICER: Dr. Thomas. TYPE OF ANESTHESIA: General. ANESTHESIA ADMINISTERED BY: Dr. Chau DESCRIPTION OF PROCEDURE: With the patient in the supine position under adequate general anesthesia, a Bliss catheter was inserted with drainage of 500 mL of clear urine. The abdomen was prepped and draped in the usual sterile manner. Veress needle puncture was performed at the umbilicus with insufflation to 15 cm of water pressure of CO2 and a 10-mm laparoscopic trocar was inserted via an infraumbilical incision. Under direct vision, 5 and 12-mm trocars were inserted in the left lower quadrant. There was no generalized peritonitis identified. There was some adherence of the omentum to the area of the cecum in the right lower quadrant and if this was peeled away, the appendix was identified and noted to be acutely inflamed. Further dissection revealed a what appears to be perforation of the appendix in its mid portion with an encasement small abscess extending into the mesoappendix and small amount of purulent material was expressed from the mesoappendix as the appendix was dissected. The mesoappendix was further dissected and overlying adherent loop of terminal ilium was freed from the mesoappendix to expose the junction of the appendix and the cecum, the base of the appendix appeared relatively normal. The mesoappendix was dissected and divided using the Endo-JANICE stapler and the appendix itself was then divided also using the Endo-JANICE stapler. The stump was examined for hemostasis. The appendix was placed in a specimen retrieval bag and removed via the 12 mm port site. The iliac fossa, right gutter, and pelvis were irrigated and suctioned and the pneumoperitoneum was released and the trocars were removed. The umbilical and 12-mm port sites were closed with fascial [id number] sutures of 0-Vicryl. All incisions were closed with 4-0 Monocryl subcuticular sutures and Steri-Strips. Dry sterile dressings were applied. The patient tolerated the procedure well and transferred to the recovery room in stable condition. Estimated blood loss for the procedure was 10 mL. Suze Pandey MD
== END 2017-08-16 | disposition left against medical advice (07) | DRG 883 ==
LOC: C.ER 13:08 → C.9E 16:44 → C.3T 17:32
PROVIDERS: ADMIT Specialist; ATTEND Specialist
PROC: 0DTJ4ZZ Resection of Appendix, Percutaneous Endoscopic Approach (ICD-10-PCS; principal; 2017-08-16)
DX: K35.3 Acute appendicitis with localized peritonitis (principal)

== ENCOUNTER → 2018-08-15 12:58 | Emergency (ER) | payer MEDICAID, OTHER ==
[2018-08-15 12:58] VITALS: BMI 26.6
== END | disposition left against medical advice (07) ==
LOC: C.ER 12:58
DX: Z02.89 Encounter for other administrative examinations (principal); R21 Rash and other nonspecific skin eruption